=== PATIENT | female | born 1970 | race Hispanic/Latino ===

== ENCOUNTER → 2018-06-04 | Outpatient (CLI) | payer OTHER ==
--- NOTE | 2018-06-05 09:13 | Diagnostic Imaging Report ---
TECHNIQUE: Magnetic resonance imaging of the LEFT ANKLE was performed WITHOUT injected contrast. COMPARISON: None available. HISTORY: Left ankle pain, peroneal tendinitis FINDINGS: LIGAMENTS: Medial Complex: Deltoid intact. Lateral Complex: Tibiofibular ligaments intact. Attenuation of the anterior talofibular ligament with thinning. TENDONS: Medial: Posterior tibial and flexor tendons intact Lateral: Peroneal tendons intact. Superior retinaculum intact. Anterior: Anterior tibial and extensor tendons intact. Achilles: Achilles tendon intact. Enthesophyte formation. BONES: No focal or infiltrative bone marrow replacing abnormality. No acute fracture or osteonecrosis. JOINTS: Cartilage: Osteochondral lesion of the medial talar dome measuring 1 x 0.5 cm. No unstable defect. Other: Fluid within the joints is within physiologic limits. SOFT TISSUES: Otherwise, unremarkable. IMPRESSION: Prior ankle inversion injury with osteochondral lesion of the medial talar dome (no unstable defect) and thinning of the anterior talofibular ligament. Peroneal tendons intact. Signed by: Dr. Felix Garcia M.D. on 06/05/2018 9:09 AM
== END ==
LOC: MRI 16:42
PROVIDERS: ATTEND Specialist
DX: M76.72 Peroneal tendinitis, left leg (principal); M25.572 Pain in left ankle and joints of left foot